=== PATIENT | female | born 1980 | race Caucasian/White ===

== ENCOUNTER 2023-02-13 06:04 | Emergency (ER) | payer OTHER ==
[~2023-02-13] VITALS: Ht 162.6 cm; Wt 115.7 kg
[~2023-02-13 06:04] MED LIST: CYCL10 PO; IBUP800 PO; METR59TL TOP; SULTRIDS PO; Zoloft25 MG PO
== END 2023-02-13 07:10 | disposition home or self-care (01) ==
LOC: ER 06:04
DX: K42.9 Umbilical hernia without obstruction or gangrene (principal)
CPT/HCPCS: 99283